=== PATIENT | male | born 1970 | race Caucasian/White ===

== ENCOUNTER 2017-05-19 08:07 | Emergency (ER) | payer SELFPAY ==
[~2017-05-19] VITALS: Ht 175.3 cm; Wt 59.0 kg
[2017-05-19 08:55] VITALS: BP 126/81
== END 2017-05-19 09:06 | disposition home or self-care (01) ==
LOC: ER 08:09
DX: T16.1XXA Foreign body in right ear, initial encounter (principal); X58.XXXA Exposure to other specified factors, initial encounter; Y93.89 Activity, other specified; Y92.89 Other specified places as the place of occurrence of the external cause; Y99.9 Unspecified external cause status
CPT/HCPCS: 69200; 99284; A4606; Z7610

== ENCOUNTER 2017-07-22 04:17 | Emergency (ER) | payer SELFPAY ==
--- NOTE | 2017-07-22 04:28 | NUR ---
PT STATES HE WAS AT [facility] AND BIS BP READING WAS 220 OVER 130 PT BP WAS DONE HERE AND IT WAS 140 OVER 100 PT STATES HE IS FINE AND DOES NOT WANT TO BE MEDICALLY EVALUATED.
== END 2017-07-22 04:29 | disposition left against medical advice (07) ==
LOC: ER 04:17
DX: Z53.21 Procedure and treatment not carried out due to patient leaving prior to being seen by health care provider (principal)